=== PATIENT | male | born 1970 | race Two or more races ===

== ENCOUNTER → 2022-11-10 11:48 | Outpatient (BNVA) | payer OTHER, SELFPAY | PROVIDERS: PCP Pediatrics; Visit Provider Urology | DX: E11.69 Type 2 diabetes mellitus with other specified complication (principal); N52.1 Erectile dysfunction due to diseases classified elsewhere; N48.6 Induration penis plastica | CPT/HCPCS: 99202 ==

== ENCOUNTER 2023-01-09 06:34 | Day surgery (SDC) | payer OTHER, SELFPAY ==
[2023-01-03 13:34] VITALS: BMI 24.0
--- NOTE | 2023-01-06 10:08 | HO.ANESPROP2 ---
Documented by User: Edie Jackson NP 01/06/23 10:08 HPI - Anesthesia Eval Consult details Narrative: 52yo M for Plication For Peyonies Disease with artificial errection FORMERLY [facility], 1928–1983 Active Problems Active Problems: All Active Problems (Updated 01/03/23 @ 13:16 by Donna Phelps, JESUS MANUEL) Peyronie's disease (Acute) Erectile dysfunction associated with type 2 diabetes mellitus (Acute) Past Medical History Medical History (Updated 01/09/23 @ 06:45 by Summer Juárez RN) Allergic rhinitis Diabetes mellitus, type II GERD (gastroesophageal reflux disease) HTN (hypertension) Hyperlipidemia Surgical History Surgical History History of dental surgery Social History Social History Patient Tobacco Use Status: Former Tobacco user Quit Date: 2006 Use of substances other than those prescribed or required for medical reasons: No Are you DNR?: No Advance Directives: No Advance Directives Information Provided: Yes Meds Allergies Allergy/AdvReac Type Severity Reaction Status Date / Time No Known Allergies Allergy Verified 01/09/23 06:45 Home Medications Medication Instructions Recorded Confirmed Last Taken Type glipizide 5 mg tablet 5 mg PO DAILY 11/10/22 01/03/23 Unknown History metformin 750 mg tablet,extended 750 mg PO DAILY 11/10/22 01/03/23 Unknown History release 24 hr omeprazole 20 mg capsule,delayed 20 mg PO DAILY PRN Gastric Reflux 11/10/22 01/03/23 Unknown History release Exam Exam Date and Time: January 06, 2023 1008 Height,Weight and Vital Signs: Height 5 ft 10 in Weight 76.204 kg Assessment and Plan Assessment Anesthesia Assessment: Chart Reviewed Documented by User: Perez Nunes MD 01/09/23 08:12 PMF Past Medical History Medical History (Updated 01/09/23 @ 06:45 by Summer Juárez, RN) Allergic rhinitis Diabetes mellitus, type II GERD (gastroesophageal reflux disease) HTN (hypertension) Hyperlipidemia Family History Family history of problems with anesthesia: No Surgical History Surgical History History of dental surgery History of Problems with Anesthesia: No Social History Social History Patient Tobacco Use Status: Former Tobacco user Quit Date: 2006 Use of substances other than those prescribed or required for medical reasons: No Are you DNR?: No Advance Directives: No Advance Directives Information Provided: Yes Meds Allergies Allergy/AdvReac Type Severity Reaction Status Date / Time No Known Allergies Allergy Verified 01/09/23 06:45 Home Medications Medication Instructions Recorded Confirmed Last Taken Type glipizide 5 mg tablet 5 mg PO DAILY 11/10/22 01/03/23 Unknown History metformin 750 mg tablet,extended 750 mg PO DAILY 11/10/22 01/03/23 Unknown History release 24 hr omeprazole 20 mg capsule,delayed 20 mg PO DAILY PRN Gastric Reflux 11/10/22 01/03/23 Unknown History release Exam Airway Mallampati Class: II TM Dist: >3cm Neck ROM: Limited Heart: rrr Lungs: cta Assessment and Plan Final Anesthetic Review Family History of Problems with Anesthesia: No History of Problems with Anesthesia: No NPO: Yes ASA Class: II Final Preanesthetic Review: No Changes in Pt Med Stat, Meds/Allgs Chart Reviewed, Consent Obtained/Reviewed and Anes Risks/Benef Reviewed Patient Risk: Intermediate Procedure Risk: Intermediate Anesthetic Plan Anesthetic Plan: GA Disposition: Standard PACU
[2023-01-09] VITALS (7 sets, daily range): BP systolic 99–139; BP diastolic 59–76; PULSE 52–63; RESP 15–16; TEMP 36.1–36.4; O2SAT 96–100
[2023-01-09] MEDS: Lactated Ringers 1,000 ML 100 ML IVCONT (07:06)
[2023-01-09 07:40] LABS: Glucose, Whole Blood 144 mg/dL (60-115)
--- NOTE | 2023-01-09 08:41 | MHC.SHP ---
Pre-Procedural Eval Section A Date of Service: 01/09/23 The patient is an INPATIENT: No Changes since office visit: No Cold of Flu in the past 2 weeks, No New Medical Problems, No Changes in Medication and No Patient answered all questions The History & Physical has been completed within 30 days and I have reviewed it.: Yes Section B Chief Complaint: Induration penis plastica Allergies: Allergies Allergy/AdvReac Type Severity Reaction Status Date / Time No Known Allergies Allergy Verified 01/09/23 06:45 Review of Systems Sugical H&P ROS: Negative: Constitution, Cardiovascular, Respiratory, Neurological, Psychiatric, Hem-Onc, Allergic/Immunologic, Gastrointestinal, Genitourinary, Musculoskeletal, Integumentary, Endocrine and Eyes/Ears/Nose/Throat Exam Surgical H&P Exam: Normal: HEENT, Normal: Heart, Normal: Lungs, Normal: Extremities, Normal: Abdomen, Normal: Skin and Normal: Neurological Plan Diagnosis/Plan: Unchanged ( penile plication) I have reviewed the history and physical and performed a pertinent physical examination on my patient. No changes have occurred unless specified. Time Spent With Patient Time: Total time managing care of this patient today ____ minutes.
--- NOTE | 2023-01-09 10:46 | W.PM.OPN ---
Operative Note Operative Note Date of Service: 01/09/23 Narrative: PreOperative Diagnosis: Peyronie's disease with Ventral penile curvature Post Operative Diagnosis: Peyronie's disease with Ventral curvature Procedure: Artificial erection with penile plication Surgeon: Dr Domenico Norton Anesthesia: General Indications for procedure: Penile curvature that has failed conservative therapy. The patient had undergone intermittent vacuum pump therapy with failure of resolution. Current erection with 60 degree ventral curvature. minimal horizontal curvature. Curvature in distal half of penis when erect. Clarke understands available options including risks for erectile dysfunction, bruising, need for secondary procedure. at baseline has mild erectile issues. Procedure: After informed consent was verified the patient was brought to the operating room and placed in a supine position. Anesthesia was administered per protocol. Genital area was shaved. The patient was prepped and draped in a sterile fashion. Safety pause time-out was performed. Antibiotics have been given. Dorsal nerve block was performed and penile ring block with local anesthetic was completed for post procedure pain control. Using a Cuauhtemoc drain and a 21 gauge butterfly needle an artificial erection was induced with injectable saline 60cc. The 60 degree curvature was quite marked in the distal aspect of the shaft. This was at maximum inflection 5cm from meatus along the penile shaft. A 4 cm incision was marked along the ventral median raphe. Local anesthetic was infiltrated and the incision taken down through the subcutaneous tissue to expose the corpora spongiosum. Dissection of Melvin fascia was performed laterally on each side exposing the corpora cavernosa. The artificial erection was reinforced. Senz retractors were used to manipulate the incision over the full length of the penis. 3.0 Surgilon sutures were placed 4 mm from the boundary between the spongiosum and the corpora. The sutures were placed in a [id number] configuration with 4-5mm between each needle pass. Sutures were first placed running down the left side of the urethra. 16Fr biswas was placed to help define the urethra. 4 sutures were initially placed as well as corresponding position of right side. Test erection performed which showed deviation to left and mild persistent curvature. A second row of three sutures was placed on the right side starting further distal on the right. a distal suture was placed on the left. Curvature was able to be corrected to between 10 and 20%. Excess suture material was removed. Each line of sutures was covered with a layer of tissue using a running 3-0 Vicryl reapproximatling Malagon's fascia. A 2nd layer of tissue was then placed over the suture lines using running 3.0 vicryl. Skin was closed with 4.0 monocryl with glue over the incision. A dressing was placed consisting of Michelet wrap and Coban dressing. The patient tolerated the procedure well, was extubated in the operating room and transferred in stable condition to the recovery area. Pathology: Drains:
== END 2023-01-09 12:32 | disposition home or self-care (01) ==
PROVIDERS: PCP Pediatrics; Visit Provider Urology
PROC: (CPT 54360; principal; 2023-01-09 08:20)
DX: E11.69 Type 2 diabetes mellitus with other specified complication (principal); N52.1 Erectile dysfunction due to diseases classified elsewhere; N48.6 Induration penis plastica; I10 Essential (primary) hypertension; E78.5 Hyperlipidemia, unspecified; K21.9 Gastro-esophageal reflux disease without esophagitis; J30.9 Allergic rhinitis, unspecified; Z79.84 Long term (current) use of oral hypoglycemic drugs; Z79.899 Other long term (current) drug therapy; Z87.891 Personal history of nicotine dependence
CPT/HCPCS: 54360; 82947; J0131; J0690; J1100; J2405; J2795

== ENCOUNTER → 2023-01-11 13:00 | Outpatient (BNVA) | payer OTHER, SELFPAY | PROVIDERS: PCP Pediatrics; Visit Provider Urology ==

== ENCOUNTER → 2023-01-20 15:11 | Outpatient (BNVA) | payer OTHER, SELFPAY | PROVIDERS: PCP Pediatrics; Visit Provider Urology | DX: E11.69 Type 2 diabetes mellitus with other specified complication (principal); N52.1 Erectile dysfunction due to diseases classified elsewhere | CPT/HCPCS: 99212 ==

== ENCOUNTER → 2023-02-17 14:24 | Outpatient (BNVA) | payer OTHER, SELFPAY | PROVIDERS: PCP Pediatrics; Visit Provider Urology | DX: N48.6 Induration penis plastica (principal) | CPT/HCPCS: 99212 ==

== ENCOUNTER 2023-08-25 09:47 | Outpatient (AMB) | payer OTHER, SELFPAY ==
--- NOTE | 2023-08-25 10:11 | A.OFFVIS_ITS ---
Intake Intake Visit Reasons: 6m follow up Intake Note: Patient is Present for Follow Up Urology Medication: Tadalafil Antibiotic Allergies: None Blood Thinners:None Allergies No Known Allergies Allergy (Verified 08/25/23 10:13) HPI HPI Comments History of Present Illness Details Clarke is a pleasant male. He is a patient of Dr. Tavares. He is seen for the following urologic conditions - Peyronie's disease Follow-up from Peyronie's procedure Had recurrence curvature Started approximately 3 months ago May have been associated with suture failure Has palpable sutures on examination Discussed plan which would require longer incision on the ventral side of penis Plan for November next year Refill tadalafil Peyronie's disease Invention - 01/29 Penile plication Primary complaint is - left dorsal penile curvature greater than 30 degrees consistent with Peyronie's disease The problem has been present - progressive over past 2-3 years At this time his erections - fully rigid but unable to perform penetrative intercourse, is maintained till erection [place] has - is not possible Associated symptoms include penile pain No penile discharge No Associated conditions - diabetes, dyslipidemia Evaluations - calcified plaque through dorsal of penis Prior management includes - vacuum pump, operative intervention [facility] Medical History GERD (gastroesophageal reflux disease) Allergic rhinitis Hyperlipidemia HTN (hypertension) Diabetes mellitus, type II Surgical History History of dental surgery Social History Patient Tobacco Use Status: Former Tobacco user Quit Date: 2006 Assessment & Plan Assessment & Plan (1) Peyronie's disease: Code(s): N48.6 - Induration penis plastica (2) Erectile dysfunction associated with type 2 diabetes mellitus: Code(s): E11.69 - Type 2 diabetes mellitus with other specified complication; N52.1 - Erectile dysfunction due to diseases classified elsewhere Plan Refill tadalafil Risks, benefits and alternatives to therapy were discussed. These include but are not limited to infection, bleeding, damage to local organs and tissues, need for further interventions. Anesthetic risks regarding cardiac arrhythmia, blood clots, and potential mortality were discussed. The patient understands the typical recovery time and the outpatient nature of the procedure. After consideration of these risks the patient gives full informed consent and they wish to move ahead with the procedure. Revision penile plication with artificial erection Patient Instructions: Imaging studies, laboratory and physical exam results were discussed and reviewed in detail. No major barriers to patient understanding were identified. An opportunity to ask questions regarding the treatment plan was provided. All questions were answered. The patient expressed understanding and agreement with the above treatment plan. The patient is aware they should contact our office by phone for worsening of their current condition or the appearance of new urologic symptoms. Compliance is encouraged with any medications and followup testing that is ordered. It is a privilege to participate in the urologic care of your patient. If you have any questions or concerns regarding treatment for the above conditions, or other urologic issues, please do not hesitate to contact me. The office telephone contact is [phone]. This note is constructed using voice recognition software. While every effort has been made to ensure accuracy executive recruiter errors may have been included. Yours sincerely, Dr Domenico Norton MD, [facility] - Urology Providers of Expert, Compassionate Care for the Genitourinary System Coding Level of Care Code Est Pt Level 4 (56985) Diagnoses Peyronie's disease N48.6 Erectile dysfunction associated with type 2 diabetes mellitus E11.69; N52.1
== END 2023-08-25 11:01 | disposition home or self-care (01) ==
PROVIDERS: Visit Provider Urology
DX: N48.6 Induration penis plastica (principal); E11.69 Type 2 diabetes mellitus with other specified complication; N52.1 Erectile dysfunction due to diseases classified elsewhere
CPT/HCPCS: 99214

== ENCOUNTER → 2023-08-25 09:47 | Outpatient (BNVA) | payer OTHER, SELFPAY | PROVIDERS: Visit Provider Urology | DX: N48.6 Induration penis plastica (principal); E11.69 Type 2 diabetes mellitus with other specified complication; N52.1 Erectile dysfunction due to diseases classified elsewhere | CPT/HCPCS: 99212 ==

== ENCOUNTER 2024-02-14 11:02 | Outpatient (AMB) | payer OTHER, SELFPAY ==
--- NOTE | 2024-02-14 11:09 | A.OFFVIS_ITS ---
Intake Visit Reasons: Revision penile plication discussion Intake Note: Patient is present for Discussion on Revision Penile Plication Allergies No Known Allergies Allergy (Verified 08/25/23 10:13) Medication List - Last Reconciled 02/14/24 by Domenico Norton MD glipizide 5 mg PO DAILY metformin ER 750 mg PO DAILY omeprazole 20 mg PO DAILY PRN sulfamethoxazole-trimethoprim 800-160 mg (Bactrim DS) 1 tab PO BID 5 days tadalafil 5 mg PO DAILY 90 days tramadol 50 mg PO Q6H PRN HPI Comments Details: Clarke is a pleasant male. He is a patient of Dr. Tavares. He is seen for the following urologic conditions - Peyronie's disease Follow-up from Peyronie's procedure Had recurrence curvature Started approximately 3 months ago May have been associated with suture failure Has palpable sutures on examination Discussed plan which would require longer incision on the ventral side of penis Continues with tadalafil Peyronie's disease Intervention - 01/29 Penile plication Primary complaint is - left dorsal penile curvature greater than 30 degrees consistent with Peyronie's disease The problem has been present - progressive over past 2-3 years At this time his erections - fully rigid but unable to perform penetrative intercourse, is maintained till erection [place] has - is not possible Associated symptoms include penile pain No penile discharge No Associated conditions - diabetes, dyslipidemia Evaluations - calcified plaque through dorsal of penis Prior management includes - vacuum pump, operative intervention [facility] Medical History GERD (gastroesophageal reflux disease) Allergic rhinitis Hyperlipidemia HTN (hypertension) Diabetes mellitus, type II Surgical History History of dental surgery Social History Patient Tobacco Use Status: Former Tobacco user Quit Date: 2006 Review of Systems Const Denies chills and Denies fever(s) Card Reports no additional complaints and Denies syncope Resp Denies cough GI Denies abdominal pain and Denies heartburn Reports as per HPI and Denies change in libido Neuro Denies syncope Psych Denies change in libido Endo Denies change in libido Physical Exam Const General: cooperative, healthy appearing, comfortable and no acute distress Orientation/consciousness: patient oriented x3 HEENT Face and sinus: Yes normal facial exam Mouth: moist mucous membranes Neck Neck: Yes normal visual inspection, Yes full ROM and Yes trachea midline Chest Chest palpation & inspection: normal inspection of the chest Resp Effort & Inspection: normal respiratory effort, able to speak in complete sentences and no respiratory distress GI Inspection: Yes normal to inspection Back/Spine/Pelvis Cervical Spine: normal cervical lordosis Thoracic/Lumbar Spine: thoracic and lumbar spine normal to inspection Skin General skin exam: no rashes or lesions noted Neuro General: patient oriented x3, gait normal, tone normal and moves all extremities Extrem General: Yes normal to inspection and Yes capillary refill normal Assessment & Plan Assessment & Plan (1) Peyronie's disease: Code(s): N48.6 - Induration penis plastica Category: Medical (2) Erectile dysfunction associated with type 2 diabetes mellitus: Code(s): E11.69 - Type 2 diabetes mellitus with other specified complication; N52.1 - Erectile dysfunction due to diseases classified elsewhere Category: Medical Plan Risks, benefits and alternatives to therapy were discussed. These include but are not limited to infection, bleeding, damage to local organs and tissues, need for further interventions. Anesthetic risks regarding cardiac arrhythmia, blood clots, and potential mortality were discussed. The patient understands the typical recovery time and the outpatient nature of the procedure. After consideration of these risks the patient gives full informed consent and they wish to move ahead with the procedure. Plan for revision penile plication Patient Instructions: Imaging studies, laboratory and physical exam results were discussed and reviewed in detail. No major barriers to patient understanding were identified. An opportunity to ask questions regarding the treatment plan was provided. All questions were answered. The patient expressed understanding and agreement with the above treatment plan. The patient is aware they should contact our office by phone for worsening of their current condition or the appearance of new urologic symptoms. Compliance is encouraged with any medications and followup testing that is ordered. It is a privilege to participate in the urologic care of your patient. If you have any questions or concerns regarding treatment for the above conditions, or other urologic issues, please do not hesitate to contact me. The office telephone contact is [phone]. This note is constructed using voice recognition software. While every effort has been made to ensure accuracy home appliance tech errors may have been included. Yours sincerely, Dr Domenico Norton MD, [facility] - Urology Providers of Expert, Compassionate Care for the Genitourinary System Coding Level of Care Code Est Pt Level 4 (87848) Diagnoses Peyronie's disease N48.6 Erectile dysfunction associated with type 2 diabetes mellitus E11.69; N52.1
== END 2024-02-14 11:27 | disposition home or self-care (01) ==
PROVIDERS: PCP Pediatrics; Visit Provider Urology
DX: N48.6 Induration penis plastica (principal); E11.69 Type 2 diabetes mellitus with other specified complication; N52.1 Erectile dysfunction due to diseases classified elsewhere
CPT/HCPCS: 99214

== ENCOUNTER → 2024-02-14 11:02 | Outpatient (BNVA) | payer OTHER, SELFPAY | PROVIDERS: PCP Pediatrics; Visit Provider Urology | DX: N48.6 Induration penis plastica (principal); E11.69 Type 2 diabetes mellitus with other specified complication; N52.1 Erectile dysfunction due to diseases classified elsewhere | CPT/HCPCS: 99212 ==